=== PATIENT | female | born 1990 | race Caucasian/White ===

== ENCOUNTER 2018-01-27 18:09 | Emergency (ER) | payer BC ==
[2018-01-27 18:18] VITALS: O2SAT 100
[2018-01-27] MEDS ORDERED: Lactated Ringer's 1,000 ML IV STA (20:12)
--- NOTE | 2018-01-27 21:08 | ED PDOC ---
Syncope/Near Syncope/Dizziness Time Seen by Provider: 01/27/18 18:59 Chief Complaint (Nursing): Syncope Chief Complaint (Provider): Head Injury and Syncope History Per: Patient History/Exam Limitations: no limitations Onset/Duration Of Symptoms: Hrs Current Symptoms Are (Timing): Still Present Seizure Or Post-ictal Symptoms: None Additional Complaint(s): 27 y/o female presents to the ED for syncope. Patient was on the train this morning around 9 AM when she started to feel light headed and exited train to get some fresh air. Upon walking she fainted and when she awoke she was informed she was out for 30 seconds and was non-convulsive. She went to work where she ate a granola bar and felt light headed, nausea. Decided to go home and get some rest. She awoke from her nap feeling nauseas with a bad headache. Patient decided to go to [facility] who told her to come to the ED. Patient denies focal weakness, blurred vision, difficulty walking, neck pain, or numbness. PMD: None Past Medical History Reviewed: Historical Data, Nursing Documentation, Vital Signs Vital Signs: Last Vital Signs Temp 98.2 F 01/27/18 18:13 Pulse 85 01/27/18 18:13 Resp 16 01/27/18 18:13 BP 133/87 01/27/18 18:13 Pulse Ox 100 01/27/18 18:13 - Medical History PMH: No Chronic Diseases - Surgical History Surgical History: No Surg Hx - Family History Family History: States: No Known Family Hx - Social History Current smoker - smoking cessation education provided: No Ex-Smoker (has not smoked in the last 12 months): No Alcohol: Social Drugs: Denies - Allergies Allergies/Adverse Reactions: Allergies Allergy/AdvReac Type Severity Reaction Status Date / Time No Known Allergies Allergy Verified 01/27/18 18:18 Review of Systems ROS Statement: Except As Marked, All Systems Reviewed And Found Negative Constitutional: Negative for: Weakness Eyes: Negative for: Vision Change Cardiovascular: Positive for: Light Headedness Gastrointestinal: Positive for: Nausea, Vomiting Musculoskeletal: Negative for: Neck Pain Neurological: Positive for: Headache, Dizziness. Negative for: Weakness, Numbness, Seizures, Other (difficulty walking) Physical Exam - Reviewed Nursing Documentation Reviewed: Yes Vital Signs Reviewed: Yes - Physical Exam Appears: Positive for: Non-toxic, No Acute Distress Head Exam: Positive for: NORMOCEPHALIC. Negative for: ATRAUMATIC (tenderness palpation of left upper posterior parietal scalp) Skin: Positive for: Normal Color, Warm, Dry Eye Exam: Positive for: EOMI, PERRL ENT: Positive for: Pharynx Is (clear) Neck: Positive for: Painless ROM Cardiovascular/Chest: Positive for: Regular Rate, Rhythm. Negative for: Murmur Respiratory: Positive for: Normal Breath Sounds. Negative for: Respiratory Distress Gastrointestinal/Abdominal: Positive for: Soft. Negative for: Tenderness Extremity: Positive for: Normal ROM. 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 Negative for: Motor/Sensory Deficits, Aphasia, Facial Droop - Laboratory Results Result Diagrams: 01/27/18 21:00 01/27/18 21:00 - ECG O2 Sat by Pulse Oximetry: 100 (RA) Pulse Ox Interpretation: Normal Medical Decision Making Medical Decision Making: Time: 18:13 Initial Impression: Syncope and head injury Differential Diagnosis: Including but not limited to dehydration, anemia, electrolyte abnormality, traumatic brain injury, or vasovagal syncope Initial Plan: * Type and Screen Blood Test * Head CT w/o contrast * EKG * CMP * Magnesium Test * Phosphorus Test * UDip * Test * IV Fluids Head CT FINDINGS: Brain: Unremarkable. No hemorrhage. No significant white matter disease. No edema. Ventricles: Unremarkable. No ventriculomegaly. Bones/joints: Unremarkable. No acute fracture. Soft tissues: Unremarkable. Sinuses: Unremarkable as visualized. No acute sinusitis. Mastoid air cells: Unremarkable as visualized. No mastoid effusion. IMPRESSION: Negative noncontrast head CT. 930p Labs unremarkable Pt feels better DW pt findings and plan of care. PMD or [place] [facility] f/u 24-48 hours. Scribe Attestation: Documented by Victor Manuel Sanderson acting as a scribe for Dr. Lise Stewart MD. MD Julianibkeanu Attestation: All medical record entries made by the Scribe were at my direction and personally dictated by me. I have reviewed the chart and agree that the record accurately reflects my personal performance of the history, physical exam, medical decision making, and the department course for this patient. I have also personally directed, reviewed, and agree with the discharge instructions and disposition. Disposition - Clinical Impression Clinical Impression: Vasovagal syncope - Disposition Referrals: Xim[facility] Brooke [Outside] Disposition: Routine/Home Disposition Time: 21:00 Condition: GOOD Additional Instructions: DRINK PLENTY OF HYDRATING FLUIDS AND EAT AT LEAST 3 WELL BALANCED MEALS DAILY. FOLLOW UP WITH YOUR PMD OR [facility] IN 24-48 HOURS TO SEE HOW YOU ARE DOING. Instructions: Syncope (Fainting) (DC) Forms: [facility] ([place])
[2018-01-27 21:12] LABS: BASO % 0.5 % (0.0-2.0); EOS # 0.1 K/uL (0.0-0.7); EOS % 0.7 % (0.0-4.0); HEMOGLOBIN 13.4 g/dL (12.0-16.0); LYMPH % 25.2 % (20.0-40.0); MEAN CELL VOLUME 87.5 fl (81.0-99.0); MEAN CORPUSCULAR HEMOGLOBIN 29.2 pg (27.0-31.0); MEAN CORPUSCULAR HGB CONC 33.3 g/dL (33.0-37.0); MEAN PLATELET VOLUME 6.6 fl (7.2-11.7); MONO # 0.6 K/uL (0.0-0.8); MONO % 8.3 % (0.0-10.0); NEUT # 5.1 K/uL (1.8-7.0); NEUT % 65.3 % (50.0-75.0); RBC 4.59 Mil/uL (3.80-5.20); RED CELL DISTRIBUTION WIDTH 13.4 % (11.5-14.5); WHITE BLOOD COUNT 7.7 K/uL (4.8-10.8)
[2018-01-27 21:28] LABS: ALB/GLOB RATIO 1.2 (1.0-2.1); ALBUMIN 4.1 g/dL (3.5-5.0); ALT/SGPT 35 U/L (9-52); AST/SGOT 21 U/L (14-36); BLOOD UREA NITROGEN 4 mg/dl (7-17); CALCIUM 9.3 mg/dL (8.4-10.2); GFR AFRICAN-AMERICAN > 60; GFR NON-AFRICAN AMERICAN > 60
[2018-01-27 22:15] VITALS: BP 129/76; PULSE 82; RESP 16; TEMP 98.4
--- NOTE | 2018-01-28 06:34 | CT ---
PROCEDURE: CT HEAD WITHOUT CONTRAST. HISTORY: head injury COMPARISON: None available. TECHNIQUE: Axial computed tomography images were obtained through the head/brain without intravenous contrast. Radiation dose: Total exam DLP = 643 mGy-cm. This CT exam was performed using one or more of the following dose reduction techniques: Automated exposure control, adjustment of the mA and/or kV according to patient size, and/or use of iterative reconstruction technique. FINDINGS: HEMORRHAGE: No intracranial hemorrhage. BRAIN: No mass effect or edema. No atrophy or chronic microvascular ischemic changes. VENTRICLES: Unremarkable. No hydrocephalus. CALVARIUM: Unremarkable. PARANASAL SINUSES: Unremarkable as visualized. No significant inflammatory changes. MASTOID AIR CELLS: Unremarkable as visualized. No inflammatory changes. OTHER FINDINGS: None. IMPRESSION: No acute intracranial abnormality. If symptoms persists, consider further evaluation with MRI. These findings were preliminarily reported at 8:53 p.m. on 01/27/[address] Eyal Davila from [facility].
--- NOTE | 2018-01-28 18:12 | CARD ---
APPROVED REPORT EKG Measurement Heart [id number] <Conclusion> Normal sinus rhythm Nonspecific ST and T wave abnormality Abnormal ECG
== END 2018-01-27 22:17 | disposition home or self-care (01) ==
LOC: H.ER 18:09
DX: R55 Syncope and collapse (principal); S09.90XA Unspecified injury of head, initial encounter; W19.XXXA Unspecified fall, initial encounter; Y92.89 Other specified places as the place of occurrence of the external cause
CPT/HCPCS: 70450; 80053; 81025; 82948; 83735; 84100; 85025; 86850; 86900; 93005; 96360; 99285; J7120